=== PATIENT | male | born 1975 | race Caucasian/White ===

== ENCOUNTER 2019-12-12 20:28 | Emergency (ER) | payer SELFPAY ==
[2019-12-12] VITALS (7 sets, daily range): BP systolic 102–144; BP diastolic 69–95; PULSE 59–86; RESP 15–23; TEMP 36.9; O2SAT 86–99; BMI 27.3
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
[2019-12-12] MEDS: morphine 4 mg/mL SDV 1 mL IVP ×2 (21:05→22:56)
[2019-12-12] MEDS: ondansetron 2 mg/ML SDV 2 mL 4 MG IVP (21:08)
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
[2019-12-12 21:28] LABS: Basophils # 0.1 10^3/uL (0.0-0.1); Basophils % 0.3 %; Eosinophils # 0.1 10^3/uL (0.0-0.8); Eosinophils % 0.4 %; Hematocrit 46.1 % (42.0-52.0); Hemoglobin 14.6 g/dL (11.7-16.6); Lymphocytes # 1.6 10^3/uL (0.8-4.8); Lymphocytes % 9.1 %; Mean Corpuscular HGB Conc 31.7 g/dL (30.0-36.0); Mean Corpuscular Hemoglobin 28.5 pg (28.0-34.0); Mean Corpuscular Volume 89.9 fL (80-94); Monocytes % 5.6 %; Neutrophils # 15.01 10^3/uL (1.8-7.7); Neutrophils % 84.2 %; Nucleated Red Blood Cells % 0 %; Platelet Count 520 10^3/cmm (130-400); Red Blood Count 5.13 10^6/uL (4.1-5.3); White Blood Count 17.8 10^3/uL (4.0-10.0)
[2019-12-12 21:49] LABS: Alanine Aminotransferase 55 U/L (0-41); Albumin Level 4.5 g/dL (3.5-5.2); Alkaline Phosphatase 68 IU/L (40-130); Anion Gap 14.6 (5-19); Aspartate Amino Transferase 61 U/L (0-40); Blood Urea Nitrogen 13 mg/dL (6-20); Calcium 8.9 mg/dL (8.5-10.5); Carbon Dioxide 22 mmol/L (22-29); Chloride 100 mmol/L (98-107); Globulin 3.7 g/dL (1.3-4.6); Glomerular Filtration Rate 66.1 mL/min (90-130); Glucose 142 mg/dL (65-115); Osmolality Calculated 275 mOsm/kg (285-295); Potassium 3.6 mmol/L (3.5-5.1); Sodium 133 mmol/L (136-145); Total Bilirubin 0.2 mg/dL (0.15-1.2); Total Protein 8.2 g/dL (6.6-8.7)
[2019-12-12] MEDS: iodixanol 320 mg/mL 100mL Btl IV ×2 (21:52→21:59)
[2019-12-12] MEDS: lactated ringers 1,000 ML 150 ML IV (21:59)
[2019-12-13 00:11] VITALS: BP 147/92; PULSE 87; RESP 18; RESP 20; O2SAT 92; O2SAT 95
[2019-12-13] MEDS: morphine 4 mg/mL SDV 1 mL IVP (00:11)
== END 2019-12-13 01:06 | disposition short-term general hospital (02) ==
PROVIDERS: Emergency Provider Emergency Medicine
DX: S42.021A Displaced fracture of shaft of right clavicle, initial encounter for closed fracture (principal); S25.10 Unspecified injury of innominate or subclavian artery; V29.9XXA Motorcycle rider (driver) (passenger) injured in unspecified traffic accident, initial encounter
CPT/HCPCS: 12345; 36415; 70450; 70498; 71045; 71260; 72125; 72128; 72131; 73030; 73060; 73080; 73090; 74177; 80053; 85025; 96365; 96366; 96375; 96376; 99283; 99284; J0131; J2270; J2405; Q9967

== ENCOUNTER → 2020-01-02 10:00 | Outpatient (BNVA) | payer OTHER, SELFPAY | PROVIDERS: Visit Provider Internal Medicine | DX: Z11.59 Encounter for screening for other viral diseases (principal) | CPT/HCPCS: 87635 ==

== ENCOUNTER → 2020-01-27 15:19 | Outpatient (BNVA) | payer OTHER, SELFPAY | PROVIDERS: Visit Provider Nurse Practitioner Family | DX: J06.9 Acute upper respiratory infection, unspecified (principal); Z11.59 Encounter for screening for other viral diseases | CPT/HCPCS: 87635 ==

== ENCOUNTER 2021-03-27 12:50 | Outpatient (CLI) | payer OTHER, SELFPAY ==
[2021-03-27 13:24] LABS: Basophils # 0.1 10^3/uL (0.0-0.1); Basophils % 1.4 %; Eosinophils # 0.3 10^3/uL (0.0-0.8); Eosinophils % 5.2 %; Hematocrit 46.1 % (42.0-52.0); Hemoglobin 14.8 g/dL (11.7-16.6); Lymphocytes # 1.9 10^3/uL (0.8-4.8); Mean Corpuscular HGB Conc 32.1 g/dL (30.0-36.0); Mean Corpuscular Hemoglobin 28.7 pg (28.0-34.0); Mean Corpuscular Volume 89.5 fl (80-94); Mean Platelet Volume 9.1 fL (7.4-10.4); Monocytes # 0.5 10^3/uL (0.2-0.9); Monocytes % 9.1 %; Neutrophils # 2.83 10^3/uL (1.8-7.7); Neutrophils % 50.6 %; Nucleated Red Blood Cells % 0 %; Platelet Count 420 10^3/cmm (130-400); Red Blood Count 5.15 10^6/uL (4.1-5.3); Red Cell Distribution Width 13.4 % (12.1-15.1); White Blood Count 5.6 10^3/uL (4.0-10.0)
[2021-03-27 14:30] LABS: Alanine Aminotransferase 53 U/L (0-41); Albumin Level 3.9 g/dL (3.5-5.2); Alkaline Phosphatase 71 IU/L (40-130); Anion Gap 15.6 (5-19); Aspartate Amino Transferase 28 U/L (0-40); Blood Urea Nitrogen 8 mg/dL (6-20); Calcium 8.1 mg/dL (8.5-10.5); Carbon Dioxide 21 mmol/L (22-29); Chloride 103 mmol/L (98-107); Globulin 3.6 g/dL (1.3-4.6); Glucose 146 mg/dL (65-115); Osmolality Calculated 283 mOsm/kg (285-295); Potassium 3.6 mmol/L (3.5-5.1); Sodium 136 mmol/L (136-145); Thyroid Stimulating Hormone 3.44 uIU/mL (0.27-4.20); Total Bilirubin 0.2 mg/dL (0.15-1.2); Total Protein 7.5 g/dL (6.6-8.7)
== END 2021-03-27 12:51 | disposition home or self-care (01) ==
PROVIDERS: PCP Family Medicine; Visit Provider Family Medicine
DX: K29.70 Gastritis, unspecified, without bleeding (principal); Z76.89 Persons encountering health services in other specified circumstances; F17.219 Nicotine dependence, cigarettes, with unspecified nicotine-induced disorders; R40.0 Somnolence; R63.5 Abnormal weight gain
CPT/HCPCS: 36415; 80053; 84443; 85025

== ENCOUNTER → 2021-05-08 13:39 | Outpatient (BNVA) | payer OTHER, SELFPAY | PROVIDERS: PCP Family Medicine; Visit Provider Family Medicine | DX: Z01.812 Encounter for preprocedural laboratory examination (principal); Z20.822 Contact with and (suspected) exposure to COVID-19 | CPT/HCPCS: 87635 ==

== ENCOUNTER 2021-05-14 11:12 | Outpatient (CLI) | payer OTHER, SELFPAY ==
--- NOTE | 2021-05-14 13:31 | PFTS_ITS ---
Date of Study:05/14/21 Date of Dictation: 05/16/2021 MECHANICS: Postbronchodilator forced vital capacity (FVC) is normal. Postbronchodilator forced expiratory volume in one second (FEV1) is moderately reduced. FEV1/FVC is reduced. There is significant response to bronchodilators. FLOW VOLUME LOOP: Scooping of end expiratory limb suggestive of mild airway obstruction . LUNG VOLUMES: Not measured DIFFUSING CAPACITY FOR CARBON MONOXIDE: Not measured . INTERPRETATION: The prebronchodilator spirometry is consistent with moderate obstruction with some improvement with bronchodilators. There is significant response to bronchodilators. Lung volumes not measured. Gas transfer not measured. Correlate clinically. MTDD
== END 2021-05-14 11:13 | disposition home or self-care (01) ==
LOC: RT 11:15
PROVIDERS: PCP Family Medicine; Visit Provider Family Medicine
DX: J40 Bronchitis, not specified as acute or chronic (principal); R05.3 Chronic cough; R40.0 Somnolence; F17.219 Nicotine dependence, cigarettes, with unspecified nicotine-induced disorders
CPT/HCPCS: 94060; J7611

== ENCOUNTER 2021-06-11 12:43 | Outpatient (RCR) | payer OTHER, SELFPAY | END 2021-07-08 23:59 | disposition home or self-care (01) | LOC: SPT 12:43 | PROVIDERS: PCP Family Medicine; Referring Provider Family Medicine; Visit Provider Family Medicine | DX: M25.511 Pain in right shoulder (principal); M25.512 Pain in left shoulder | CPT/HCPCS: 97161 ==

== ENCOUNTER 2021-07-09 06:00 | Outpatient (RCR) | payer MEDICAID, SELFPAY | END 2021-08-08 23:59 | disposition home or self-care (01) | LOC: SPT 06:00 | PROVIDERS: PCP Family Medicine; Referring Provider Family Medicine; Visit Provider Family Medicine | DX: M25.511 Pain in right shoulder (principal); M25.512 Pain in left shoulder | CPT/HCPCS: 97110 ==

== ENCOUNTER 2021-08-19 20:36 | Emergency (ER) | payer OTHER, MEDICAID, SELFPAY ==
[2021-08-19 20:57] VITALS: BP 161/106; PULSE 90; RESP 18; TEMP 36.4; O2SAT 98; BMI 31.0
--- NOTE | 2021-08-19 21:04 | ED_ITS ---
HPI - Abdominal Pain General: Chief Complaint: Abdominal Pain Stated Complaint: ABD Pain\Swollen Testical Time Seen by Provider: 08/19/21 21:04 History of Present Illness: Mr. Avitia is a 45-year-old gentleman with history of asthma and gastritis who presents to the emergency department due to abdominal pain. He reports yesterday noticing pain in his right back region however this resolved. He subsequently developed right lower quadrant and right testicular pain. Intensity of symptoms is moderate to severe and worse with palpation. He noticed right testicular swelling as well. He denies changes with bowel movements or pain with defecation. He is still urinating and denies acute change. He denies specific provoking factor that he can think of. Denies similar episodes in past. No other specific changes in health, exacerbating, or alleviating factors identified. Onset (ago): hour(s) Pain Consistency: constant Location: Other Pain scale (0-10): 8 Quality: aching Radiation: RLQ and R flank Review of Systems General: Reports: 10 or more systems reviewed and unremarkable except in HPI and below PFSH ED PFSH: Medical History Gastritis Surgical History Status post laparoscopic cholecystectomy Social History (Updated 08/19/21 @ 21:45 by David Rosenbaum MD) Smoking and tobacco status: current every day smoker Alcohol intake: current Alcohol intake frequency: 0-2 Drinks per Day Physical Exam Const: COMMON NORMALS: alert GENERAL APPEARANCE: cooperative, well developed and ill appearing (Mild due to discomfort) HENMT: COMMON NORMALS: normocephalic and atraumatic HEAD & SCALP: normocephalic and atraumatic Eye: COMMON NORMALS: conjunctivae normal CONJUNCTIVA: Yes conjunctivae normal SCLERA: sclerae normal Neck/C-Spine: COMMON NORMALS: supple GENERAL: Yes trachea midline Resp: EFFORT & INSPECTION: Yes able to speak in complete sentences AUSCULTATION: diminished lung sounds Cardio: COMMON NORMALS: regular rate and regular rhythm RATE: regular rate RHYTHM: regular rhythm GI: COMMON NORMALS: Soft to palpation PALPATION: Yes Soft to palpation and No Tenderness to palpation present (GI) : COMMON NORMALS: Yes No hernias present MALE GROIN/PERINEUM EXAM: No Genital lesions present PENIS: normal penis, circumcised, no swelling and No Genital lesions present SCROTUM: Yes Cremasteric reflex present TESTES: Yes testicular lie normal, Yes testicular swelling Testicular swelling laterality: right, Yes testicular tenderness Testicular tenderness laterality: right and No high-riding testicle Extremity: GENERAL: Yes normal exam except as noted and No edema Neuro: COMMON NORMALS: moves all extremities SENSORIUM/ORIENTATION: Yes alert and No Orientation impaired Psych: COMMON NORMALS: mental status grossly normal and Normal thought process present THOUGHT PROCESS: Normal thought process present Course ED course: - Patient was seen and evaluated by me at bedside - Patient placed on cardiac monitors, IV access obtained - Initial evaluation notable for exam as above. Right testicle tender to palpation and swollen however normal lie and location, cremasteric reflex present. - Labs personally interpreted by me - Symptom treatment ordered - Labs notable for minimal leukocytosis, metabolic panel with perhaps mild evidence of dehydration, ALT elevated of uncertain etiology. Urinalysis not concerning for urinary tract infection - Imaging notable for abnormal testicular ultrasound with area that appears to have partial infarction of right testicle. Various etiologies though overall rare finding. This was discussed with Dr. Salgado, given physical findings without evidence of testicular torsion acutely or convincing history for similar patient can reasonably be discharged for clinic follow-up shortly. 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 - The results of ED evaluation were discussed with the patient including prescriptions and/or symptomatic cares (if applicable) including appropriate and responsible use, followup plan, and return precautions. The patient verbalized understanding and felt safe for discharge. - Patient discharged in satisfactory condition. Note: Click bubbles or prepopulated parsons in note writing are used for assistance with data collection and billing and are inherently more limited than narrative and other text portions of this note. Please use narrative for additional clinical history and defer to narrative/free test for any case of contradictory information. If information appears in only free text or click bubble it should be considered present or absent as reported. Please contact note editorial writer for clarifications of clinical information or contradictory information. MDM is a brief summary, contradictory or erroneous seeming information should be clarified and full note should be reviewed. Vital Signs: Vital signs: Vital Signs Temperature 97.6 F 08/19/21 20:57 Pulse Rate 82 08/19/21 23:17 Respiratory Rate 18 08/20/21 00:05 Blood Pressure 162/104 08/19/21 23:17 Pulse Oximetry 94 08/19/21 23:17 MDM - Abdominal Pain Medical Decision Making 45-year-old gentleman without significant past medical history presenting to the emergency department due to testicular pain and swelling. No evidence of urinary tract infection. No evidence of testicular torsion on exam. Abnormal ultrasound discussed with Dr. Salgado and patient satisfactory for outpatient close follow-up in clinic. Medical Records I reviewed the patient's medical records. Lab Data I reviewed the patient's lab results. : 08/19/21 21:35 08/19/21 21:35 Labs/Radiology: Radiology Impressions Scrotum Ultrasound 08/19/21 21:17 IMPRESSION: 1. 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 Segmental infarcts are rare. 2. Follow-up exam may be helpful rule out neoplasm. This has appearance of tumor except it is avascular. Infarcts get smaller with time while neoplasms will increase in size with time. 3. Small right hydrocele. Laboratory Results WBC 10.6 10^3/uL (4.0-10.0) H 08/19/21 21:35 RBC 4.86 10^6/uL (4.1-5.3) 08/19/21 21:35 Hgb 14.7 g/dL (11.7-16.6) 08/19/21 21:35 Hct 44.2 % (42.0-52.0) 08/19/21 21:35 MCV 90.9 fl (80-94) 08/19/21 21:35 MCH 30.2 pg (28.0-34.0) 08/19/21 21:35 MCHC 33.3 g/dL (30.0-36.0) 08/19/21 21:35 RDW 14.6 % (12.1-15.1) 08/19/21 21:35 Plt Count 424 10^3/cmm (130-400) H 08/19/21 21:35 MPV 9.5 fL (7.4-10.4) 08/19/21 21:35 Neut % (Auto) 73.7 % 08/19/21 21:35 Lymph % (Auto) 16.6 % 08/19/21 21:35 [place] % (Auto) 7.1 % 08/19/21 21:35 Eos % (Auto) 1.6 % 08/19/21 21:35 Baso % (Auto) 0.7 % 08/19/21 21:35 Neut # (Auto) 7.80 10^3/uL (1.8-7.7) H 08/19/21 21:35 Lymph # (Auto) 1.8 10^3/uL (0.8-4.8) 08/19/21 21:35 [place] # (Auto) 0.8 10^3/uL (0.2-0.9) 08/19/21 21:35 Eos # (Auto) 0.2 10^3/uL (0.0-0.8) 08/19/21 21:35 Baso # (Auto) 0.1 10^3/uL (0.0-0.1) 08/19/21 21:35 Nucleated RBC % (auto) 0 % 08/19/21 21:35 Nucleated RBCs # 0.0 /100WBC 08/19/21 21:35 Sodium 135 mmol/L (136-145) L 08/19/21 21:35 Potassium 5.1 mmol/L (3.5-5.1) 08/19/21 21:35 Chloride 105 mmol/L (98-107) 08/19/21 21:35 Carbon Dioxide 20 mmol/L (22-29) L 08/19/21 21:35 Anion Gap 15.1 (5-19) 08/19/21 21:35 BUN 14 mg/dL (6-20) 08/19/21 21:35 Creatinine 0.8 mg/dL (0.7-1.2) 08/19/21 21:35 GFR Calculation 105.0 mL/min (90-130) 08/19/21 21:35 Glucose 117 mg/dL (65-115) H 08/19/21 21:35 Calculated Osmolality 282 mOsm/kg (285-295) L 08/19/21 21:35 Calcium 8.8 mg/dL (8.5-10.5) 08/19/21 21:35 Total Bilirubin 0.3 mg/dL (0.15-1.2) 08/19/21 21:35 AST 34 U/L (0-40) 08/19/21 21:35 ALT 68 U/L (0-41) H 08/19/21 21:35 Alkaline Phosphatase 76 IU/L (40-130) 08/19/21 21:35 Total Protein 7.2 g/dL (6.6-8.7) 08/19/21 21:35 Albumin 4.0 g/dL (3.5-5.2) 08/19/21 21:35 Globulin 3.2 g/dL (1.3-4.6) 08/19/21 21:35 Lipase 160 U/L (13-60) H 08/19/21 21:35 Urine Color Yellow (Yellow) 08/19/21 22:48 Urine Appearance Clear (CLEAR) 08/19/21 22:48 Urine pH 5 (5-7) 08/19/21 22:48 Ur Specific [place] 1.025 (1.005-1.030) 08/19/21 22:48 Urine Protein Neg (Negative) 08/19/21 22:48 Urine Glucose (UA) Norm (Normal) 08/19/21 22:48 Urine Ketones Negative (Negative) 08/19/21 22:48 Urine Blood Neg (Negative) 08/19/21 22:48 Urine Nitrate Negative (Negative) 08/19/21 22:48 Urine Bilirubin Neg (Negative) 08/19/21 22:48 Urine Urobilinogen Norm mg/dL (Negative) 08/19/21 22:48 Ur Leukocyte Esterase Negative (Negative) 08/19/21 22:48 Discharge Plan Discharge Patient Disposition: Home Clinical Impression: Pain in right testicle, Swelling of right testicle Condition: Stable Prescriptions: New oxycodone 5 mg tablet 5 mg PO Q4H PRN (Reason: pain) Qty: 10 0RF No Action albuterol sulfate [Ventolin HFA] 90 mcg/actuation HFA aerosol inhaler 1 inh inhalation QID PRN (Reason: shortness of breath or wheezing) Qty: 8.5 1RF pantoprazole 40 mg tablet,delayed release (DR/EC) 40 mg PO DAILY 30 Days Qty: 30 5RF budesonide-formoterol [Symbicort] 80-4.5 mcg/actuation HFA aerosol inhaler 2 puff inhalation BID Qty: 10.2 0RF Discharge Orders: Discharge ED (Routine); Ordered 08/19/21 Ordered By: David Rosenbaum Referrals: Anurag Dean, [Primary Care Provider] - Discharge Diet: Usual diet Discharge Activity: Limit activity as instructed Patient Instructions: Testicle Pain (ED), Opioid Safety Activity Restrictions/Additional Instructions: Thank you for visiting the emergency department. You were seen and evaluated for testicular pain and swelling as well as flank pain. The exact cause of your symptoms is unclear however as discussed you do have abnormality on scrotal ultrasound which requires further evaluation. Please follow-up with Dr. Salgado of urology. Please call his clinic in the morning. [phone]. Please return to the emergency department for worsening pain, elevation of the right testicle, abnormal orientation of testicle, or anything else that you are concerned about and feel needs emergency department evaluation. Your ultrasound read is as follows: 1. 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 Segmental infarcts are rare. 2. Follow-up exam may be helpful rule out neoplasm. This has appearance of tumor except it is avascular. Infarcts get smaller with time while neoplasms will increase in size with time. 3. Small right hydrocele. Coding Level of Care Code ED Facing End Trimmer for Chg Fwd Exam Comprehensive
--- NOTE | 2021-08-19 21:17 | USR_ITS ---
PROCEDURE INFORMATION: Exam: US Scrotum Exam date and time: 08/19/2021 9:47 PM Age: 45 years old Clinical indication: Swelling, testicles or scrotum; Scrotum pain; Additional info: R testicle pain and swelling TECHNIQUE: Imaging protocol: Real-time ultrasound of the scrotum and contents with color Doppler and image documentation. COMPARISON: CT chest abd pel w con* 12/12/2019 9:51 PM FINDINGS: Right testicle: 3.5 x 2.3 x 2.6 cm right testicle. 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 Left testicle: 3.7 x 2.6 x 2.5 cm left testicle. Epididymides: 1.0 x 1.2 x 2.1 cm right epididymis. 1.8 x 1.5 x 0.8 cm left epididymis. Scrotum: Small right hydrocele. Other findings: Follow-up exam may be helpful rule out neoplasm. This has appearance of tumor except it is avascular. Infarcts get smaller with time while neoplasms will increase in size with time. US/US scrotum [id number] IMPRESSION: 1. 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 Segmental infarcts are rare. 2. Follow-up exam may be helpful rule out neoplasm. This has appearance of tumor except it is avascular. Infarcts get smaller with time while neoplasms will increase in size with time. 3. Small right hydrocele.
[2021-08-19 21:40] LABS: Basophils # 0.1 10^3/uL (0.0-0.1); Basophils % 0.7 %; Eosinophils # 0.2 10^3/uL (0.0-0.8); Eosinophils % 1.6 %; Hematocrit 44.2 % (42.0-52.0); Hemoglobin 14.7 g/dL (11.7-16.6); Lymphocytes # 1.8 10^3/uL (0.8-4.8); Lymphocytes % 16.6 %; Mean Corpuscular HGB Conc 33.3 g/dL (30.0-36.0); Mean Corpuscular Hemoglobin 30.2 pg (28.0-34.0); Mean Corpuscular Volume 90.9 fl (80-94); Mean Platelet Volume 9.5 fL (7.4-10.4); Monocytes # 0.8 10^3/uL (0.2-0.9); Monocytes % 7.1 %; Neutrophils % 73.7 %; Nucleated Red Blood Cells % 0 %; Platelet Count 424 10^3/cmm (130-400); Red Blood Count 4.86 10^6/uL (4.1-5.3); Red Cell Distribution Width 14.6 % (12.1-15.1); White Blood Count 10.6 10^3/uL (4.0-10.0)
[2021-08-19 22:06] LABS: Alkaline Phosphatase 76 IU/L (40-130); Blood Urea Nitrogen 14 mg/dL (6-20); Calcium 8.8 mg/dL (8.5-10.5); Carbon Dioxide 20 mmol/L (22-29); Chloride 105 mmol/L (98-107); Globulin 3.2 g/dL (1.3-4.6); Glucose 117 mg/dL (65-115); Lipase 160 U/L (13-60); Osmolality Calculated 282 mOsm/kg (285-295); Sodium 135 mmol/L (136-145); Total Bilirubin 0.3 mg/dL (0.15-1.2); Total Protein 7.2 g/dL (6.6-8.7)
[2021-08-19 22:15] LABS: Anion Gap 15.1 (5-19); Potassium 5.1 mmol/L (3.5-5.1)
[2021-08-19 22:17] LABS: Alanine Aminotransferase 68 U/L (0-41); Aspartate Amino Transferase 34 U/L (0-40)
[2021-08-19 22:35] VITALS: BP 145/113; PULSE 98; RESP 18; O2SAT 95
[2021-08-19 22:42] VITALS: RESP 18
[2021-08-19] MEDS: morphine 4 mg/mL SDV 1 mL IVP (22:42)
[2021-08-19] MEDS: lactated ringers 1,000 ML 999 ML IV (22:43)
[2021-08-19 22:58] LABS: Add Urine Microscopic? NO; Charge for UA Resulting for Rev
[2021-08-19 23:01] VITALS: BP 156/101; O2SAT 93
[2021-08-19 23:14] LABS: Bilirubin Urine Neg (Negative); Blood Urine Neg (Negative); Glucose Urine UA Norm (Normal); Ketones Urine Negative (Negative); Leukocyte Esterase Urine Negative (Negative); Nitrate Urine Negative (Negative); Protein Urine Neg (Negative); Specific Gravity, Urine 1.025 (1.005-1.030); Urine Appearance Clear (CLEAR); Urine Color Yellow (Yellow); Urobilinogen Urine Norm (Negative); pH Urine 5 (5-7)
[2021-08-19 23:17] VITALS: BP 162/104; PULSE 82; RESP 14; O2SAT 94
[2021-08-20 00:05] VITALS: RESP 18
[2021-08-20] MEDS: oxyCODONE 5 mg IR Tab/Cap PO (00:05)
--- NOTE | 2021-08-20 00:07 | PC.NURSE ---
Patient requested pain pill before discharge, due to pharmacy being closed at this time. Patient given pain pill.
[2021-08-20 00:18] VITALS: BP 155/102; PULSE 79; RESP 16; O2SAT 95
== END 2021-08-20 00:20 | disposition home or self-care (01) ==
PROVIDERS: Emergency Medicine; Emergency Provider Emergency Medicine; PCP Family Medicine
DX: N50.811 Right testicular pain (principal); N50.89 Other specified disorders of the male genital organs
CPT/HCPCS: 76870; 80053; 81003; 83690; 85025; 96361; 96374; 99284; J2270

== ENCOUNTER 2022-07-11 08:03 | Outpatient (CLI) | payer OTHER, MEDICAID, SELFPAY ==
--- NOTE | 2022-07-11 08:17 | XR_ITS ---
WS: [id number] XR lumbar spine 2-3V* [id number] REASON FOR EXAM: lumbar strain FINDINGS: Mild straightening of lordosis. Mild biconcave compression deformities L1-L5. Intervertebral disc spaces are relatively well-preserved. 3 to 4 mm of anterolisthesis of L2 in relation to L1. 3 mm of anterolisthesis of L4 in relation to L3. 4 to 5 mm of anterolisthesis of L5 in relation to L4. There may be a spondylolysis at L5-S1. Mild degenerative changes in the facet joints L4-S1. XR/XR lumbar spine 2-3V* [id number] IMPRESSION: Degenerative spondylosis as above.
== END 2022-07-11 08:04 | disposition home or self-care (01) ==
PROVIDERS: PCP Family Medicine; Visit Provider Emergency Medicine
DX: S39.012A Strain of muscle, fascia and tendon of lower back, initial encounter (principal); X58.XXXA Exposure to other specified factors, initial encounter; M47.896 Other spondylosis, lumbar region
CPT/HCPCS: 72100

== ENCOUNTER → 2022-08-19 09:23 | Outpatient (BNVA) | payer OTHER, MEDICAID, SELFPAY | PROVIDERS: PCP Family Medicine; Referring Provider Family Medicine; Visit Provider Physician Assistant | DX: M43.16 Spondylolisthesis, lumbar region (principal) | CPT/HCPCS: 72110 ==

== ENCOUNTER 2023-02-18 10:28 | Outpatient (CLI) | payer OTHER, MEDICAID, SELFPAY ==
[2023-02-18 11:03] LABS: Basophils # 0.1 10^3/uL (0.0-0.1); Basophils % 0.9 %; Eosinophils # 0.3 10^3/uL (0.0-0.8); Eosinophils % 4.2 %; Hematocrit 48.5 % (37-53); Lymphocytes # 1.6 10^3/uL (0.8-4.8); Lymphocytes % 21.4 %; Mean Corpuscular HGB Conc 32.8 g/dL (30-55); Mean Corpuscular Hemoglobin 30.8 pg (27-33); Monocytes # 0.6 10^3/uL (0.2-0.9); Monocytes % 8.3 %; Neutrophils # 4.93 10^3/uL (1.8-7.7); Neutrophils % 64.8 %; Nucleated Red Blood Cells % 0 %; Platelet Count 415 10^3/cmm (157-399); Red Blood Count 5.16 10^6/uL (3.85-5.65); Red Cell Distribution Width 13.4 % (12.1-15.1); White Blood Count 7.61 10^3/uL (3.29-11.43)
[2023-02-18 11:33] LABS: Alanine Aminotransferase 125 U/L (0-41); Albumin Level 4.1 g/dL (3.5-5.2); Alkaline Phosphatase 96 U/L (40-130); Blood Urea Nitrogen 12 mg/dL (6-20); Calcium 9.3 mg/dL (8.5-10.5); Carbon Dioxide 25 mmol/L (22-29); Chloride 100 mmol/L (98-107); Chol HDL Ratio 6.03 mg/dL (1.0-5.00); Cholesterol 241 mg/dL (0-200); Globulin 4.1 g/dL (1.3-4.6); Glomerular Filtration Rate 104.1 mL/min (90-130); Glucose 119 mg/dL (65-115); HDL Cholesterol 40 mg/dL (60-100); LDL Cholesterol Calculated 142 mg/dL (50-129); LDL HDL Ratio 3.55 RATIO (0.00-3.22); Osmolality Calculated 281 mOsm/kg (285-295); Prostate Specific Antigen Scr 0.49 ng/mL (0-4); Sodium 135 mmol/L (136-145); Total Bilirubin 0.3 mg/dL (0.15-1.2); Total Protein 8.2 g/dL (6.6-8.7); Triglycerides 296 mg/dL (0-150)
[2023-02-18 12:19] LABS: Anion Gap 14.7 (5-19); Aspartate Amino Transferase 67 U/L (0-40); Potassium 4.7 mmol/L (3.5-5.1)
== END 2023-02-18 10:29 | disposition home or self-care (01) ==
PROVIDERS: PCP Family Medicine; Visit Provider Family Medicine
DX: I10 Essential (primary) hypertension (principal); J44.9 Chronic obstructive pulmonary disease, unspecified; M47.816 Spondylosis without myelopathy or radiculopathy, lumbar region; N52.9 Male erectile dysfunction, unspecified; Z12.5 Encounter for screening for malignant neoplasm of prostate
CPT/HCPCS: 36415; 80053; 80061; 85025; G0103

== ENCOUNTER → 2024-08-10 09:00 | Outpatient (BNVA) | payer MEDICAID, SELFPAY | PROVIDERS: PCP Family Medicine; Visit Provider Family Medicine | DX: I10 Essential (primary) hypertension (principal); R07.9 Chest pain, unspecified | CPT/HCPCS: 80053; 80061; 85025 ==

== ENCOUNTER 2024-08-18 11:34 | Outpatient (CLI) | payer MEDICAID, SELFPAY ==
[2024-08-18 12:31] LABS: Alanine Aminotransferase 222 U/L (0-41); Albumin Level 4.1 g/dL (3.5-5.2); Alkaline Phosphatase 104 U/L (40-130); Anion Gap 17.1 (5-19); Aspartate Amino Transferase 172 U/L (0-40); Blood Urea Nitrogen 9 mg/dL (6-20); Calcium 9.2 mg/dL (8.5-10.5); Carbon Dioxide 23 mmol/L (22-29); Chloride 101 mmol/L (98-107); Globulin 4.4 g/dL (1.3-4.6); Glomerular Filtration Rate 103.6 mL/min (90-130); Glucose 128 mg/dL (65-115); Osmolality Calculated 284 mOsm/kg (285-295); Potassium 4.1 mmol/L (3.5-5.1); Sodium 137 mmol/L (136-145); Total Bilirubin 0.4 mg/dL (0.15-1.2); Total Protein 8.5 g/dL (6.6-8.7)
== END 2024-08-18 11:35 | disposition home or self-care (01) ==
PROVIDERS: PCP Family Medicine; Visit Provider Family Medicine
DX: F10.90 Alcohol use, unspecified, uncomplicated (principal); R10.9 Unspecified abdominal pain
CPT/HCPCS: 36415; 80053

== ENCOUNTER 2024-08-22 09:26 | Outpatient (CLI) | payer MEDICAID, SELFPAY ==
[2024-08-22 10:57] LABS: Hepatitis A Antibody IgM Non-Reactive (Nonreactive); Hepatitis B Core AB, Total Non-Reactive (Nonreactive); Hepatitis B Surface AB < 3.5 (11.5-1000); Hepatitis B Surface Antigen Non-Reactive (Nonreactive); Hepatitis C Virus Antibody Reactive (Nonreactive)
[2024-08-23 06:35] LABS: HIV AG/AB 4th Generation NON-REACTIVE (NON-REACTIVE)
[2024-08-23 16:15] LABS: HEP C RNA Viral Load Quant 3240000 IU/mL (NOT DETECTED); HEP C RNA Viral Load Quant 6.51 Log IU/mL (NOT DETECTED)
== END 2024-08-22 09:27 | disposition home or self-care (01) ==
LOC: LAB 09:28
PROVIDERS: PCP Family Medicine; Visit Provider Family Medicine
DX: R10.9 Unspecified abdominal pain (principal); F10.90 Alcohol use, unspecified, uncomplicated; F10.939 Alcohol use, unspecified with withdrawal, unspecified; R79.89 Other specified abnormal findings of blood chemistry
CPT/HCPCS: 36415; 86705; 86706; 86709; 86803; 87340; 87389; 87522

== ENCOUNTER 2024-08-25 08:13 | Outpatient (CLI) | payer MEDICAID, SELFPAY ==
--- NOTE | 2024-08-25 08:15 | US_ITS ---
WS: [id number] Complete ABDOMINAL ULTRASOUND HISTORY: R74.8 - Abnormal levels of other serum enzymes COMPARISON: Gallbladder ultrasound 07/31/2017 Liver: 18.8 cm in length. Liver is slightly enlarged with increasing coarse echotexture. Hepatomegaly and change in echotexture has progressed since 2018. The entire liver is difficult to visualize due to the attenuation. Portal Vein: Normal hepatopetal flow with monophasic waveform. Gallbladder: Prior cholecystectomy. CBD: 0.4 cm Pancreas: Not visualized. Right kidney: 11.1 cm x 5.1 x 5.1 cm. Cortex:1.1 cm. Normal size and echogenicity. No hydronephrosis or mass. Left kidney: 10.6 cm x 5.3 cm x 5.7 cm. Cortex: 1.1 cm. Normal size and echogenicity. No hydronephrosis or mass. Spleen: 12.1 cm. Normal size and echogenicity. Scattered granulomata. Aorta and IVC: Unremarkable abdominal aorta and IVC. US/US abdomen complete* [id number] Impression: 1. Prior cholecystectomy. 2. Hepatomegaly and hepatic steatosis is new since 2018. No hepatic mass. 3. Normal bile duct. 4. No renal obstruction.
== END 2024-08-25 08:14 | disposition home or self-care (01) ==
PROVIDERS: PCP Family Medicine; Visit Provider Family Medicine
DX: R74.8 Abnormal levels of other serum enzymes (principal); R10.9 Unspecified abdominal pain; F10.90 Alcohol use, unspecified, uncomplicated; Z90.49 Acquired absence of other specified parts of digestive tract; R16.0 Hepatomegaly, not elsewhere classified; K76.0 Fatty (change of) liver, not elsewhere classified; D73.89 Other diseases of spleen
CPT/HCPCS: 76700

== ENCOUNTER 2024-09-08 08:07 | Outpatient (CLI) | payer MEDICAID, SELFPAY ==
[2024-09-08 09:20] LABS: INR 0.82 (0.8-1.2)
[2024-09-08 09:34] LABS: Thyroid Stimulating Hormone 2.62 uIU/mL (0.27-4.20)
== END 2024-09-08 08:08 | disposition home or self-care (01) ==
PROVIDERS: PCP Family Medicine; Visit Provider Family Medicine
DX: B19.20 Unspecified viral hepatitis C without hepatic coma (principal); R79.89 Other specified abnormal findings of blood chemistry
CPT/HCPCS: 36415; 84443; 85610; 86480